=== PATIENT | male | born 1980 | race Caucasian/White ===

== ENCOUNTER 2020-09-08 10:01 | Emergency (ER) | payer BC, OTHER | END 2020-09-08 11:47 | disposition home or self-care (01) | LOC: JVIRT 10:01 | DX: Z03.818 Encounter for observation for suspected exposure to other biological agents ruled out (principal) | CPT/HCPCS: C9803; G2012-GT; U0003 ==

== ENCOUNTER 2023-07-12 11:56 | Emergency (ER) | payer BC, OTHER ==
[2023-07-12 12:07] VITALS: BP 149/88; PULSE 88; RESP 17; TEMP 98; BMI 25.5
[2023-07-12 13:15] LABS: BASO % 1.1 % (0-2.0); EOS % 3.9 % (0-4.5); HEMATOCRIT 41.9 % (35.4-49); HEMOGLOBIN 13.9 GM/dL (11.7-16.9); LYMPH % 12.2 % (8-40); MCH 26.1 pg (25.7-33.7); MCHC 33.2 g/dl (32.0-35.9); MEAN CELL VOLUME 78.8 fl (80-96); MEAN PLT VOLUME 7.5 fl (7.5-11.1); MONO % 6.1 % (3.8-10.2); NEUT % 76.7 % (42.8-82.8); PLATELET COUNT 232 10^3/uL (134-434); RBC 5.32 M/mm3 (4.00-5.60)
[2023-07-12 13:38] LABS: ALBUMIN 3.7 g/dl (3.4-5.0)
[2023-07-12 13:41] LABS: CREATININE 1.3 mg/dL (0.55-1.3)
[2023-07-12 13:43] LABS: BILIRUBIN,TOTAL 0.3 mg/dL (0.2-1)
[2023-07-12 13:46] LABS: BLOOD UREA NITROGEN 18.6 mg/dL (7-18)
[2023-07-12 14:02] LABS: INR 1.16 (0.83-1.09); PROTHROMBIN TIME (PATIENT) 13.4 SEC (9.7-13.0)
[2023-07-12 14:05] LABS: ACTIVATED PTT 30.8 SECONDS (25.2-36.5)
== END 2023-07-12 16:09 | disposition home or self-care (01) ==
LOC: JER 11:56
DX: R07.9 Chest pain, unspecified (principal); R06.02 Shortness of breath; R42 Dizziness and giddiness; H53.8 Other visual disturbances; H43.399 Other vitreous opacities, unspecified eye; J98.4 Other disorders of lung
CPT/HCPCS: 36415; 70450-TC; 71046-TC-FY; 71275-TC; 80053; 84484; 85025; 85379; 85610; 85730; 93005; 93010; 99285-25; Q9967